=== PATIENT | female | born 1965 | race Two or more races ===

== ENCOUNTER 2018-05-15 05:53 | Day surgery (SDC) | payer SELFPAY ==
[2018-05-03 16:08] VITALS: BMI 35.5
[2018-05-15] MEDS ORDERED: DESFLURANE GAS 240 ML BOTTLE IH ONE (07:21)
[2018-05-15] MEDS ORDERED: MIDAZOLAM HCL 2 MG/2 ML SINGLE DOSE VIAL ONE (07:29)
[2018-05-15] MEDS ORDERED: LIDOCAINE HCL/PF 2% SDV 5ML VIAL ONE (07:30)
[2018-05-15] MEDS ORDERED: KETOROLAC TROMETHAMINE 30 MG/1 ML VIAL ONE (07:31)
[2018-05-15] MEDS ORDERED: DEXAMETHASONE SOD PHOSPHATE 4 MG/1 ML VIAL ONE (07:31)
[2018-05-15] MEDS ORDERED: PROPOFOL 20 ML ONE ×3 (07:31→13:38)
[2018-05-15] MEDS ORDERED: ONDANSETRON 4 MG/2 ML VIAL ONE ×2 (07:32→13:56)
[2018-05-15] MEDS ORDERED: ROCURONIUM BROMIDE 50 MG/5 ML VIAL ONE ×3 (07:33→09:18)
[2018-05-15] MEDS ORDERED: ONDANSETRON 4 MG/2 ML VIAL IVPUSH PRN (07:36)
[2018-05-15] MEDS ORDERED: LACTATED RINGERS SOLUTION 1,000 ML IV SCH ×2 (07:45→14:30)
[2018-05-15] MEDS ORDERED: LIDOCAINE HCL 1%, 10 MG/ML (20ML VIAL) ONE (07:55)
[2018-05-15] MEDS ORDERED: EPINEPHrine/PF 1 MG/1 ML (1:1,000) AMPULE ONE (07:55)
[2018-05-15] MEDS ORDERED: ceFAZolin SODIUM 1 GM VIAL ONE (08:42)
[2018-05-15] MEDS ORDERED: SUCCINYLCHOLINE CHLORIDE 200 MG/10 ML VIAL ONE (08:46)
[2018-05-15] MEDS ORDERED: BACITRACIN 15 GM TUBE TOPICAL OINTMENT ONE (09:34)
[2018-05-15] MEDS ORDERED: SEVOFLURANE 250 ML BTL ONE (09:54)
[2018-05-15] MEDS ORDERED: oxyCODONE HCL 5 MG TABLET PO PRN ×2 (14:20)
[2018-05-15] MEDS ORDERED: ONDANSETRON 4 MG/2 ML VIAL IVPB PRN (14:20)
[2018-05-15] MEDS ORDERED: ACETAMINOPHEN 1000 MG/100 ML VIAL (NON FORMULARY) IVPB PRN (14:29)
[2018-05-15 17:10] VITALS: BP 155/77; PULSE 81; TEMP 98.2
--- NOTE | 2018-05-15 19:42 | OP ---
DATE OF OPERATION: 05/15/2018 TITLE OF PROCEDURE: Bilateral arm liposuction with bilateral brachioplasty. ATTENDING SURGEON: Solomon Andrews MD Patient is seen in the holding area, marked of the planned incisions and areas for liposuction. She is awake and aware of all scars, understands that they will be longitudinally on her arm and visible only in certain positions. She is aware of risks, benefits to the procedure, understands, and agrees to proceed. DESCRIPTION OF PROCEDURE: Patient is brought to the operating room, placed in supine position. After induction of general anesthesia, a Chow catheter is placed. The arms are prepped and draped in standard surgical fashion. A timeout is called. Patient, procedure, sites, and sides are verified. At this point, several stab wound incisions are made. Wetting solution is infiltrated into each arm. A total of 1000 mL of wetting solution is infiltrated into the areas that are not to be excised in the brachioplasty. A full 15 minutes is awaited for hemostatic affect. Through the same stab wounds, liposuction is then performed with a combination of 3-, 4-, and 5-mm Cayla-tip cannulas using a [employer] power-assisted liposuction system. The lipoaspirates from the patient's right arm are 1600 mL and from the left arm 1000 mL. There is a significant difference in the volume of the 2 arms preoperatively. At this point, it should be noted that the distribution center assistant scrubbed in. His name was Vasquez Matthews. He is the PA. Markings are verified. Attention is first directed toward the right arm where the premarked pattern is then incised. Dissection is carried down to the level of the brachial fascia. The fascia is left undisturbed throughout the entirety of the case. There were no interruptions of the fascia. Hemostasis was then meticulously achieved. The pattern of skin and fat is entirely excised and is staple, tailor tacked for closure. The mirror-image procedure is then performed on the contralateral side with the arms brought out to extension. Excellent symmetry of shape and size is obtained. Size 10 flat GREG drains are brought out through the distal extent of the incisions, secured with a 2-0 silk drain suture. Closure is then performed with a series of interrupted superficial fascial system 2-0 Vicryl suture, followed by a series of interrupted, buried, deep dermal 3-0 Monocryl suture, followed by a running subcuticular 3-0 Monocryl suture. Several lona are used at tension points. The liposuction poles are closed with a series of interrupted 4-0 nylon suture. Incisions are dressed with Steri-Strips. The arms are fitted with a special surgical garment. The patient awoken from anesthesia, neurovascularly intact. Drains were placed to bulb suction, transferred to Recovery without complication. Adriane [id number]
== END 2018-05-15 17:52 | disposition home or self-care (01) ==
LOC: FASU 05:53
PROVIDERS: ATTEND Plastic Surgery
PROC: 0J0D0ZZ Alteration of Right Upper Arm Subcutaneous Tissue and Fascia, Open Approach (ICD-10-PCS; 2018-05-15)
PROC: 0J0F3ZZ Alteration of Left Upper Arm Subcutaneous Tissue and Fascia, Percutaneous Approach (ICD-10-PCS; 2018-05-15)
PROC: 0J0D3ZZ Alteration of Right Upper Arm Subcutaneous Tissue and Fascia, Percutaneous Approach (ICD-10-PCS; 2018-05-15)
PROC: 0J0F0ZZ Alteration of Left Upper Arm Subcutaneous Tissue and Fascia, Open Approach (ICD-10-PCS; principal; 2018-05-15 09:33)
DX: Z41.1 Encounter for cosmetic surgery (principal)
CPT/HCPCS: 94760